=== PATIENT | male | born 1945 | race Two or more races ===

== ENCOUNTER 2020-06-16 07:50 | Inpatient (IN) | payer MEDICARE, MEDICAID ==
[~2020-06-16] VITALS: Ht 170.2 cm; Wt 67.8 kg
[2020-06-16] VITALS (36 sets, daily range): BP systolic 62–160; BP diastolic 23–108
[2020-06-16] MEDS ORDERED: NOREPINEPHRINE 8 MG in DEXT 5% WATER 242 ML IV STA (08:18)
[2020-06-16] MEDS ORDERED: SUCCINYLCHOLINE CHLORIDE 200MG/10ML IV ONE (08:25)
[2020-06-16] MEDS ORDERED: ETOMIDATE 2MG/ML 10ML VIAL IV ONE (08:25)
[2020-06-16] MEDS ORDERED: NOREPINEPHRINE 8 MG in DEXT 5% WATER 242 ML IV SCH (08:30)
[2020-06-16] MEDS ORDERED: SODIUM CHLORIDE 0.9% 1000ML BAG (SEPSIS BOLUS) IV ONE (08:30)
[2020-06-16] MEDS ORDERED: PHENYLEPHRINE 50 MG in DEXT 5% WATER 245 ML IV STA (08:50)
[2020-06-16] MEDS ORDERED: PIPERACILLIN/TAZ 3.375G PREMIX 50 ML IV ONE (09:00)
[2020-06-16] MEDS ORDERED: ASPIRIN 300MG SUPP PR ONE (09:00)
[2020-06-16] MEDS ORDERED: VANCOMYCIN 1 G PREMIX 200 ML IV SCH (09:00)
[2020-06-16] MEDS ORDERED: PHENYLEPHRINE 50 MG in DEXT 5% WATER 245 ML IV SCH (09:00)
[2020-06-16 09:16] LABS: HEMATOCRIT. 31.3 % (42.0-52.0); MEAN CORPUSCULAR HEMOGLOBIN 21.5 pg (28.0-32.0); MEAN CORPUSCULAR VOLUME 75.2 fL (80.0-94.0); MEAN PLATELET VOLUME 7.8 fl (7.4-10.4); PLATELET 498 x1000/uL (130-400); RED BLOOD CELL COUNT 4.17 mill/uL (4.7-6.1)
[2020-06-16 09:24] LABS: CHLORIDE 100 mEq/L (98-107)
[2020-06-16 09:26] LABS: INR 1.2; PROTHROMBIN TIME 12.9 sec (9.6-11.0)
[2020-06-16 09:28] LABS: BG BASE EXCESS -11.1 mmol/L (-2.0-2.0); BG CARBOXYHEMOGLOBIN 0.2 % (0.5-1.5); BG DEOXYHEMOGLOBIN 10.2 % (0.0-5.0); BG FRACTION INSPIRED OXYGEN 99.9; BG HCO3 ACT 15.4 mmol/L (22.0-26.0); BG METHEMOGLOBIN 0.3 % (0.0-1.5); BG OXYGEN SATURATION 89.7 % (92.0-98.5); BG OXYHEMOGLOBIN 89.3 % (94.0-97.0); BG PCO2 36.7 mmHg (35.0-45.0); BG PO2 69.8 mmHg (75.0-100.0); BG SAMPLE SITE LEFT RADIAL; BG TOTAL HEMOGLOBIN 9.2 g/dL (12.0-18.0); BG VENT MODE MASK - NRB
[2020-06-16 09:45] LABS: PLATELET ESTIMATE INCREASED
[2020-06-16 12:37] LABS: BG BASE EXCESS -13.8 mmol/L (-2.0-2.0); BG CARBOXYHEMOGLOBIN 0.6 % (0.5-1.5); BG DEOXYHEMOGLOBIN 13.7 % (0.0-5.0); BG FRACTION INSPIRED OXYGEN 99.9; BG HCO3 ACT 14.5 mmol/L (22.0-26.0); BG METHEMOGLOBIN 0.3 % (0.0-1.5); BG OXYGEN SATURATION 86.2 % (92.0-98.5); BG OXYHEMOGLOBIN 85.4 % (94.0-97.0); BG PH 7.137 (7.350-7.450); BG PO2 69.1 mmHg (75.0-100.0); BG SAMPLE SITE LEFT RADIAL; BG TOTAL HEMOGLOBIN 9.9 g/dL (12.0-18.0); BG VENT MODE MASK - NRB
[2020-06-16] MEDS ORDERED: SODIUM BICARBONATE 8.4% 1 MEQ/ML 50ML SYR IV NR (13:00)
[2020-06-16] MEDS ORDERED: NOREPINEPHRINE 32 MG in DEXT 5% WATER 218 ML IV PRN (13:15)
[2020-06-16] MEDS ORDERED: FENTANYL CITRATE/PF 2,500 MCG in SODIUM CHLORIDE 0.9% 200 ML IV PRN (13:15)
[2020-06-16] MEDS ORDERED: MIDAZOLAM HCL 100 MG in SODIUM CHLORIDE 0.9% 80 ML IV PRN (13:15)
[2020-06-16] MEDS: SODIUM BICARBONATE 150 MEQ in DEXTROSE 5% WATER 1,000 ML IV SCH ×2 (13:30→17:43)
[2020-06-16] MEDS ORDERED: ONDANSETRON HCL 4MG/2ML INJ IV PRN (13:45)
[2020-06-16] MEDS ORDERED: ACETAMINOPHEN 325MG TABLET PO PRN (13:45)
[2020-06-16] MEDS ORDERED: IPRATROPIUM/ALBUTEROL 0.5-3(2.5)MG/3ML NEB HHN PRN (14:00)
[2020-06-16] MEDS ORDERED: DEXT 5%/0.45% NACL 1000ML 1,000 ML IV SCH (14:00)
[2020-06-16] MEDS ORDERED: PIPERACILLIN/TAZ 3.375G PREMIX 50 ML IV SCH (14:00)
[2020-06-16] MEDS: PANTOPRAZOLE SODIUM 40 MG/VIAL IV SCH (14:48)
[2020-06-16] MEDS: ENOXAPARIN 30MG/0.3ML SYR SUBCUT SCH (14:49)
[2020-06-16 14:50] LABS: BG BASE EXCESS -11.5 mmol/L (-2.0-2.0); BG CARBOXYHEMOGLOBIN 0.4 % (0.5-1.5); BG DEOXYHEMOGLOBIN 1.3 % (0.0-5.0); BG FRACTION INSPIRED OXYGEN 100; BG HCO3 ACT 13.5 mmol/L (22.0-26.0); BG METHEMOGLOBIN 0.3 % (0.0-1.5); BG OXYGEN SATURATION 98.7 % (92.0-98.5); BG PCO2 27.6 mmHg (35.0-45.0); BG PH 7.307 (7.350-7.450); BG PO2 191.1 mmHg (75.0-100.0); BG SAMPLE SITE LEFT RADIAL; BG TOTAL HEMOGLOBIN 9.6 g/dL (12.0-18.0); BG VENT MODE VENT - AC
[2020-06-16] MEDS ORDERED: VASOPRESSIN 20 UNIT in SODIUM CHLORIDE 0.9% 99 ML IV PRN (16:30)
[2020-06-16] MEDS: NOREPINEPHRINE 32 MG in DEXT 5% WATER 218 ML IV PRN (17:44)
[2020-06-16] MEDS: VASOPRESSIN 20 UNIT in SODIUM CHLORIDE 0.9% 99 ML IV PRN (17:46)
[2020-06-16] MEDS ORDERED: PHENYLEPHRINE 100 MG in DEXT 5% WATER 240 ML IV PRN (18:00)
[2020-06-16] MEDS: DOPAMINE 800MG PREMIX (DOUBLE) 250 ML IV PRN (18:53)
[2020-06-16] MEDS: VANCOMYCIN 1 G PREMIX 200 ML IV SCH (19:13)
[2020-06-16] MEDS: PHENYLEPHRINE 200 MG in DEXT 5% WATER 480 ML IV PRN (19:56)
[2020-06-16] MEDS: IPRATROPIUM/ALBUTEROL 0.5-3(2.5)MG/3ML NEB HHN SCH (20:38)
[2020-06-16] MEDS: HYDROCORTISONE SOD SUCCINATE 100 MG/2 ML VIAL IV SCH (21:13)
[2020-06-16] MEDS ORDERED: PIPERACILLIN/TAZOBACTAM 3.375 G in DEXT 5% WATER 100 ML IV SCH (21:45)
[2020-06-16] MEDS: PIPERACILLIN/TAZOBACTAM 3.375 G in DEXT 5% WATER 100 ML IV SCH (22:09)
[2020-06-17] VITALS (74 sets, daily range): BP systolic 42–147; BP diastolic 15–75
[2020-06-17] MEDS ORDERED: VANCOMYCIN 750 MG PREMIX 150 ML IV SCH
[2020-06-17] MEDS: IPRATROPIUM/ALBUTEROL 0.5-3(2.5)MG/3ML NEB HHN SCH ×5 (00:12→15:04)
[2020-06-17] MEDS: VASOPRESSIN 20 UNIT in SODIUM CHLORIDE 0.9% 99 ML IV PRN ×3 (00:22→17:55)
[2020-06-17 01:55] LABS: BG BASE EXCESS -17.9 mmol/L (-2.0-2.0); BG CARBOXYHEMOGLOBIN 1.2 % (0.5-1.5); BG DEOXYHEMOGLOBIN 69.3 % (0.0-5.0); BG FRACTION INSPIRED OXYGEN 100; BG HCO3 ACT 13.3 mmol/L (22.0-26.0); BG METHEMOGLOBIN 0.3 % (0.0-1.5); BG OXYGEN SATURATION 29.6 % (92.0-98.5); BG OXYHEMOGLOBIN 29.2 % (94.0-97.0); BG PCO2 59.2 mmHg (35.0-45.0); BG PO2 < 30.3 mmHg (75.0-100.0); BG SAMPLE SITE LEFT BRACHIAL; BG TOTAL HEMOGLOBIN 9.7 g/dL (12.0-18.0); BG VENT MODE VENT - AC
[2020-06-17] MEDS ORDERED: SODIUM BICARBONATE 8.4% 1 MEQ/ML 50ML SYR IV NR ×2 (02:15→09:30)
[2020-06-17] MEDS: SODIUM BICARBONATE 150 MEQ in DEXTROSE 5% WATER 1,000 ML IV SCH ×2 (02:18→11:56)
[2020-06-17] MEDS: NOREPINEPHRINE 32 MG in DEXT 5% WATER 218 ML IV PRN ×3 (03:10→17:59)
[2020-06-17] MEDS: HYDROCORTISONE SOD SUCCINATE 100 MG/2 ML VIAL IV SCH ×2 (05:03→14:57)
[2020-06-17 05:34] LABS: CHLORIDE 90 mEq/L (98-107)
[2020-06-17 05:36] LABS: HEMATOCRIT. 30.1 % (42.0-52.0); HEMOGLOBIN. 8.8 g/dL (14.0-18.0); MEAN CORPUSCULAR VOLUME 75.6 fL (80.0-94.0); MEAN PLATELET VOLUME 8.3 fl (7.4-10.4); PLATELET 421 x1000/uL (130-400); RED BLOOD CELL COUNT 3.98 mill/uL (4.7-6.1); RED CELL DISTRIBUTION WIDTH 18.3 % (11.6-14.6)
[2020-06-17] MEDS: PIPERACILLIN/TAZOBACTAM 3.375 G in DEXT 5% WATER 100 ML IV SCH ×2 (05:46→14:58)
[2020-06-17 05:49] LABS: HDL CHOLESTEROL 50 mg/dL (40-59)
[2020-06-17 05:51] LABS: LDL CHOLESTEROL 4 mg/dL (5-100)
[2020-06-17 06:00] LABS: CREATINE KINASE 2606 IU/L (39-308)
[2020-06-17] MEDS: PHENYLEPHRINE 200 MG in DEXT 5% WATER 480 ML IV PRN ×2 (06:00→14:55)
[2020-06-17] MEDS ORDERED: POTASSIUM CHLORIDE INJ 40 MEQ in DEXT 5% WATER 500 ML IV SCH ×2 (08:00→12:00)
[2020-06-17] MEDS: PANTOPRAZOLE SODIUM 40 MG/VIAL IV SCH (09:00)
[2020-06-17 09:22] LABS: BG BASE EXCESS -18.9 mmol/L (-2.0-2.0); BG CARBOXYHEMOGLOBIN 0.7 % (0.5-1.5); BG DEOXYHEMOGLOBIN 7.6 % (0.0-5.0); BG FRACTION INSPIRED OXYGEN 100; BG HCO3 ACT 8.8 mmol/L (22.0-26.0); BG OXYGEN SATURATION 92.3 % (92.0-98.5); BG OXYHEMOGLOBIN 91.7 % (94.0-97.0); BG PCO2 27.3 mmHg (35.0-45.0); BG PH 7.126 (7.350-7.450); BG SAMPLE SITE LEFT RADIAL; BG TOTAL HEMOGLOBIN 8.7 g/dL (12.0-18.0); BG TOTAL RESPIRATORY RATE 38 b/min; BG VENT MODE VENT - AC
[2020-06-17 09:32] LABS: NUCLEATED RED BLOOD CELLS 4 /100 WBC
[2020-06-17 09:34] LABS: PLATELET ESTIMATE SLIGHTLY INCREASED
[2020-06-17] MEDS ORDERED: SODIUM BICARBONATE 8.4% 1 MEQ/ML 50ML SYR IV ONE ×2 (09:35→09:37)
[2020-06-17] MEDS: ENOXAPARIN 30MG/0.3ML SYR SUBCUT SCH (14:58)
[2020-06-17] MEDS: DOPAMINE 800MG PREMIX (DOUBLE) 250 ML IV PRN (17:40)
[2020-06-17] MEDS: VANCOMYCIN 1 G PREMIX 200 ML IV SCH (18:05)
== END 2020-06-17 19:20 | disposition expired | DRG 871 ==
LOC: ER 07:50 → MICUSO 10:04 → ENRESERV 15:46
PROVIDERS: ADMIT Hospitalist; ATTEND Hospitalist
PROC: 5A1945Z Respiratory Ventilation, 24-96 Consecutive Hours (ICD-10-PCS; principal; 2020-06-16)
PROC: 0BH17EZ Insertion of Endotracheal Airway into Trachea, Via Natural or Artificial Opening (ICD-10-PCS; 2020-06-16)
PROC: 05HY33Z Insertion of Infusion Device into Upper Vein, Percutaneous Approach (ICD-10-PCS; 2020-06-16)
PROC: B54MZZA Ultrasonography of Right Upper Extremity Veins, Guidance (ICD-10-PCS; 2020-06-16)
PROC: 5A12012 Performance of Cardiac Output, Single, Manual (ICD-10-PCS; 2020-06-16)
DX: A41.9 Sepsis, unspecified organism (principal); R65.21 Severe sepsis with septic shock; N17.0 Acute kidney failure with tubular necrosis; K85.90 Acute pancreatitis without necrosis or infection, unspecified; J96.01 Acute respiratory failure with hypoxia; I50.31 Acute diastolic (congestive) heart failure; J69.0 Pneumonitis due to inhalation of food and vomit; I21.19 ST elevation (STEMI) myocardial infarction involving other coronary artery of inferior wall; G93.40 Encephalopathy, unspecified; E44.1 Mild protein-calorie malnutrition; J93.83 Other pneumothorax; E87.2 Acidosis; E87.1 Hypo-osmolality and hyponatremia; D63.8 Anemia in other chronic diseases classified elsewhere; E87.6 Hypokalemia; J44.9 Chronic obstructive pulmonary disease, unspecified; Z66 Do not resuscitate; Z20.822 Contact with and (suspected) exposure to COVID-19; R74.01 Elevation of levels of liver transaminase levels; I48.0 Paroxysmal atrial fibrillation; R00.1 Bradycardia, unspecified; I46.9 Cardiac arrest, cause unspecified; G20 Parkinson's disease; J98.2 Interstitial emphysema; Z68.23 Body mass index [BMI] 23.0-23.9, adult
CPT/HCPCS: 36415; 36600; 71045; 76937; 80053; 80061; 82375; 82550; 82805; 82962; 83605; 83880; 84145; 84484; 85025; 86850; 86900; 93005; 93970; 94002; 94003; 94640; 99291; C1725; C9113; J0330; J1265; J1650; J1720; J2370; J2405; J2543; J3370; J3480; J3490; J7030; J7050; J7060; J7070; U0003